=== PATIENT | male | born 1980 | race Two or more races ===

== ENCOUNTER 2016-06-03 20:55 | Emergency (ER) | payer OTHER ==
[~2016-06-03] VITALS: Ht 165.1 cm; Wt 99.8 kg
[~2016-06-03 20:55] MED LIST: AZITHROMYCIN250 MG ORAL; BENADRYL25 M3 PO; NKM; PREDNISONE20 MG ORAL; PROAIR HFA8.5 GM INH; PROMETHAZINE-D118 ML ORAL; TRAMADOL HCL50 MG ORAL
[2016-06-03 22:00] VITALS: BP 137/84
[2016-06-03] MEDS ORDERED: Morphine Sulfate 4mg/ml Inj IVP ONE (22:15)
[2016-06-03 23:03] LABS: MEAN CORPUSCULAR HEMOGLOBIN 31.6 PG (27.0-31.0); MEAN CORPUSCULAR HGB CONC 34.1 G/DL (32.0-36.0); MEAN CORPUSCULAR VOLUME 93 FL (80-99); PLATELET COUNT 176 K/UL (150-450); RED BLOOD COUNT 5.37 M/UL (4.70-6.10); RED CELL DISTRIBUTION WIDTH 11.8 % (11.6-14.8); WHITE BLOOD COUNT 7.9 K/UL (4.8-10.8)
[2016-06-03 23:04] LABS: BASOPHILS % (AUTO) 1.3 % (0.0-2.0); MEAN PLATELET VOLUME 10.1 FL (6.5-10.1); MONOCYTES % (AUTO) 8.3 % (1.0-10.0); NEUTROPHILS % (AUTO) 57.5 % (45.0-75.0)
[2016-06-03 23:10] LABS: ALANINE AMINOTRANSFERASE 54 U/L (3-41); ALBUMIN/GLOBULIN RATIO 1.6 (1.0-2.7); ANION GAP 17 (5-15); ASPARTATE AMINO TRANSFERASE 28 U/L (5-40); CARBON DIOXIDE 22 mEQ/L (20-30); CHLORIDE 103 mEQ/L (98-107); CHOLESTEROL 182 mg/dL (< 200); CHOLESTEROL/HDL RATIO 6.7 (3.3-4.4); GLOMERULAR FILTRATION RATE > 60 mL/min (>60); HEMOLYSIS 24; LDL CHOLESTEROL (CALC.) 62 mg/dL (60-99); LIPASE 34 U/L (< 60); POTASSIUM 4.2 mEQ/L (3.4-4.9); SODIUM 142 mEQ/L (135-145)
[2016-06-04 00:39] VITALS: BP 135/80
[2016-06-04] MEDS ORDERED: TRAMADOL HCL50 MG ORAL (00:43)
[2016-06-04 00:49] VITALS: BP 135/80
--- NOTE | 2016-06-04 02:11 | Emergency Room Report ---
History of Present Illness General Chief Complaint: Pain Source: Patient Present Illness HPI 35-year-old male presents to ED complaining of abdominal pain. Patient states that he was lifting a heavy gate today with he "felt a pop". Notes pain in his left upper abdomen. 10 out of 10. Sharp. Nonradiating. No aggravating or relieving factors. Denies nausea or vomiting. Denies fevers or chills. No aggravating relieving factors. Denies any other associated symptoms Allergies: Coded Allergies: No Known Allergies (Unverified , 04/26/14) Patient History Past Medical History: none Past Surgical History: appy Pertinent Family History: none Social History: Denies: alcohol use, drug use, smoking Immunizations: UTD Reviewed Nursing Documentation: PMH: Agreed, PSxH: Agreed Review of Systems All Other Systems: negative except mentioned in HPI Physical Exam Vital Signs Date Time Temp Pulse Resp B/P Pulse Ox O2 Delivery O2 Flow Rate FiO2 06/03/16 21:45 98.2 110 18 141/89 98 Room Air Sp02 EP Interpretation: reviewed, normal General Appearance: no apparent distress, alert, GCS 15, non-toxic Head: normocephalic, atraumatic Eyes: bilateral eye PERRL, bilateral eye normal inspection ENT: hearing grossly normal, normal pharynx, no angioedema, normal voice Neck: full range of motion, supple/symm/no masses Respiratory: chest non-tender, lungs clear, normal breath sounds, speaking full sentences Cardiovascular #1: regular rate, rhythm, no edema Cardiovascular #2: 2+ carotid (R), 2+ carotid (L), 2+ radial (R), 2+ radial (L) , 2+ dorsalis pedis (R), 2+ dorsalis pedis (L) Gastrointestinal: normal bowel sounds, soft, non-distended, no guarding, no rebound, tenderness - LUQ Rectal: deferred Genitourinary: normal inspection, no CVA tenderness Musculoskeletal: back normal, gait/station normal, normal range of motion, non- tender Neurologic: alert, oriented x3, responsive, motor strength/tone normal, sensory intact, speech normal Psychiatric: judgement/insight normal, memory normal, mood/affect normal, no suicidal/homicidal ideation Reflexes: 3+ bicep (R), 3+ bicep (L), 3+ tricep (R), 3+ tricep (L), 3+ knee (R) , 3+ knee (L) Skin: normal color, no rash, warm/dry, well hydrated Lymphatic: no adenopathy Medical Decision Making Diagnostic Impression: Primary Impression: Abdominal pain Qualified Codes: R10.12 - Left upper quadrant pain Additional Impression: Muscle strain ER Course Hospital Course 35-year-old male presents ED with left upper quadrant pain after lifting heavy object Differential diagnosis includes-appendicitis, cholecystitis, small bowel obstruction, gastritis, hernia Clinical course Patient placed on stretcher. After initial history and physical I ordered labs , IV fluids, pain medications and CT scan Labs - no leukocytosis, electrolytes ok, LFTs normal, UA unremarkable CT scan shows no acute pathology Upon reassessment, patient states pain has improved. Pain is likely muscular strain. Reassurance given I feel this is a highly complex case requiring extensive working including EKG/ Rhythm strip, Xray/CT/US, Blood/urine lab work, repeat exams while in ED, and administration of strong opiates/narcotics for pain control, admission to hospital or close patient follow up. Diagnosis - abdominal pain, muscle strain Stable and discharged to home with prescription for tramadol. Followup with PMD. Return to ED if symptoms recur or worsen Labs Test 06/03/16 22:30 White Blood Count 7.9 K/UL (4.8-10.8) Red Blood Count 5.37 M/UL (4.70-6.10) Hemoglobin 17.0 G/DL (14.2-18.0) Hematocrit 49.8 % (42.0-52.0) Mean Corpuscular Volume 93 FL (80-99) Mean Corpuscular Hemoglobin 31.6 PG (27.0-31.0) Mean Corpuscular Hemoglobin Concent 34.1 G/DL (32.0-36.0) Red Cell Distribution Width 11.8 % (11.6-14.8) Platelet Count 176 K/UL (150-450) Mean Platelet Volume 10.1 FL (6.5-10.1) Neutrophils (%) (Auto) 57.5 % (45.0-75.0) Lymphocytes (%) (Auto) 29.0 % (20.0-45.0) Monocytes (%) (Auto) 8.3 % (1.0-10.0) Eosinophils (%) (Auto) 4.0 % (0.0-3.0) Basophils (%) (Auto) 1.3 % (0.0-2.0) Sodium Level 142 mEQ/L (135-145) Potassium Level 4.2 mEQ/L (3.4-4.9) Chloride Level 103 mEQ/L (98-107) Carbon Dioxide Level 22 mEQ/L (20-30) Anion Gap 17 (5-15) Blood Urea Nitrogen 17 mg/dL (7-23) Creatinine 1.0 mg/dL (0.7-1.2) Estimat Glomerular Filtration Rate > 60 mL/min (>60) Glucose Level 130 mg/dL (74-106) Calcium Level 9.0 mg/dL (8.6-10.2) Total Bilirubin < 0.2 mg/dL (0.0-1.2) Aspartate Amino Transf (AST/SGOT) 28 U/L (5-40) Alanine Aminotransferase (ALT/SGPT) 54 U/L (3-41) Alkaline Phosphatase 95 U/L (40-129) Total Protein 7.0 g/dL (6.6-8.7) Albumin 4.4 g/dL (3.5-5.2) Globulin 2.6 g/dL Albumin/Globulin Ratio 1.6 (1.0-2.7) Triglycerides Level 464 mg/dL (< 150) Cholesterol Level 182 mg/dL (< 200) LDL Cholesterol 62 mg/dL (60-99) HDL Cholesterol 27 mg/dL (> 60) Cholesterol/HDL Ratio 6.7 (3.3-4.4) Lipase 34 U/L (< 60) CT/MRI/US Diagnostic Results CT/MRI/US Diagnostic Results : Imaging Test Ordered: CT A/P Impression no acute process Last Vital Signs Date Time Temp Pulse Resp B/P Pulse Ox O2 Delivery O2 Flow Rate FiO2 06/04/16 00:49 83 16 135/80 99 Room Air 06/04/16 00:39 98.0 Status: improved Disposition: HOME, SELF-CARE Condition: Stable Scripts Tramadol Hcl* (ULTRAM*) 50 Mg Tablet 50 MG ORAL Q6H Y for For Pain, #20 TAB 0 Refills Prov: ANALI COELLO M.D. 06/04/16 Referrals: [facility]ERR[facility] (PCP) Patient Instructions: Abdominal Pain, Adult, [id number] ANALI COELLO M.D. Jun 04, 2016 02:11
--- NOTE | 2016-06-04 08:54 | Diagnostic Imaging Report ---
Indication: Abdominal pain Technique: Continuous helical transaxial imaging of the abdomen and pelvis was obtained from the lung bases to the pubic symphysis during intravenous contrast administration. Coronal 2-D reformats were also obtained. Study obtained in a Siemens sensation [address] Total Dose length Product (DLP): [address] Dose Index Volume (CTDIvol): 19 mGy Comparison: 02/22/15 Findings: Lung bases are clear. The liver is low in attenuation consistent with fatty infiltration. No abnormal disease of the gallbladder, pancreas, adrenal glands, kidneys or spleen identified. Appendectomy noted. Bilateral hernias containing fat are noted. No change compared to the previous study. Is Impression: No acute findings appreciated. Fatty liver Bilateral inguinal hernias containing fat. Status post appendectomy. [facility] has communicated the preliminary results to the Emergency Department. Their findings are largely concordant with this report. The CT scanner at [facility] is accredited by the [employer] and the scans are performed using protocols designed to limit radiation exposure to as low as reasonably achievable to attain images of sufficient resolution adequate for diagnostic evaluation.
== END 2016-06-04 00:52 | disposition home or self-care (01) ==
LOC: EMR 22:25
DX: R10.12 Left upper quadrant pain (principal); S39.011A Strain of muscle, fascia and tendon of abdomen, initial encounter; X50.0XXA Overexertion from strenuous movement or load, initial encounter; Y92.9 Unspecified place or not applicable; K76.0 Fatty (change of) liver, not elsewhere classified; K40.20 Bilateral inguinal hernia, without obstruction or gangrene, not specified as recurrent; Z90.49 Acquired absence of other specified parts of digestive tract
CPT/HCPCS: 36415; 74177; 80053; 80061; 83690; 85025; 96360; 96374; 99284; J2270; J7040; Q9967

== ENCOUNTER 2017-07-02 12:06 | Emergency (ER) | payer OTHER ==
[~2017-07-02] VITALS: Ht 165.1 cm; Wt 98.4 kg
--- NOTE | 2017-07-02 12:53 | Emergency Room Report ---
History of Present Illness General Chief Complaint: Skin Rash/Abscess Present Illness HPI 36-year-old male presents to the emergency department complaining of dark and itchy rash on the bilateral hands times several months. Patient states that it comes and goes and is always in the same spot. Patient describes it is always circular in shape. Denies lesions/rashes elsewhere on the body. Denies new medications or body washes or creams. Denies swelling of the lips, tongue , throat or airway. Denies wheezing, or shortness of breath. Denies recent travel , recent illness or ill contacts. denies blisters, oral lesions, or sloughing of the skin. Patient also complains of intermittent burning sensation in the epigastric area that is worse approximately 30 minutes after eating with associated nausea and no vomiting times several months as well. Patient denies constipation, diarrhea, melena or hematochezia. Patient denies history of acid reflux. Patient reports his abdominal pain will be approximately 3 out of 10 in severity that is burning and constant. Patient denies pain at this time. Denies CP, Palpitations, LOC, AMS, dizziness, Changes in Vision, Sensation, paresthesias, or a sudden severe headache. Allergies: Coded Allergies: No Known Allergies (Unverified , 04/26/14) Patient History Past Medical History: see triage record Past Surgical History: none Pertinent Family History: none Reviewed Nursing Documentation: PMH: Agreed, PSxH: Agreed Review of Systems All Other Systems: negative except mentioned in HPI Physical Exam Vital Signs Date Time Temp Pulse Resp B/P (MAP) Pulse Ox O2 Delivery O2 Flow Rate FiO2 07/02/17 12:36 98.3 97 20 140/95 99 Room Air 98.2 Sp02 EP Interpretation: reviewed, normal General Appearance: no apparent distress, alert, GCS 15, non-toxic Head: normocephalic, atraumatic ENT: hearing grossly normal, no angioedema, normal voice, uvula midline, moist mucus membranes, other - no swelling of lips or tongue. Neck: full range of motion Respiratory: chest non-tender, lungs clear, normal breath sounds, speaking full sentences Cardiovascular #1: regular rate, rhythm, no edema Gastrointestinal: normal bowel sounds, non tender, soft, non-distended Musculoskeletal: back normal, gait/station normal, normal range of motion, non- tender Neurologic: alert, oriented x3, responsive, motor strength/tone normal, sensory intact, normal gait, speech normal, grossly normal Psychiatric: judgement/insight normal Skin: normal color, warm/dry, well hydrated, rash - Eczematoid-type skin lesions that are circular on the bilateral dorsal thenar aspects. No blisters or vesicles evidence of infection at this time Medical Decision Making PA Attestation Dr. Henry is my supervising Physician whom patient management has been discussed with. Diagnostic Impression: Primary Impression: Eczematous dermatitis Qualified Codes: L30.9 - Dermatitis, unspecified Additional Impression: Gastritis Qualified Codes: K29.70 - Gastritis, unspecified, without bleeding ER Course 36-year-old male presents to the emergency department complaining of : 1) dark and itchy rash on the bilateral hands times several months. Patient states that it comes and goes and is always in the same spot. Patient describes it is always circular in shape. Denies lesions/rashes elsewhere on the body. Denies new medications or body washes or creams. Denies swelling of the lips, tongue , throat or airway. Denies wheezing, or shortness of breath. Denies recent travel, recent illness or ill contacts. denies blisters, oral lesions, or sloughing of the skin. 2) Patient also complains of intermittent burning sensation in the epigastric area that is worse approximately 30 minutes after eating with associated nausea and no vomiting times several months as well. Patient denies constipation, diarrhea, melena or hematochezia. Patient denies history of acid reflux. Patient reports his abdominal pain will be approximately 3 out of 10 in severity that is burning and constant. Patient denies pain at this time. Denies CP, Palpitations, LOC, AMS, dizziness, Changes in Vision, Sensation, paresthesias, or a sudden severe headache. Ddx considered but are not limited to cellulitis, scabies, shingles, varicella, dermatitis, urticaria, eczema, tinea, viral exanthem, SJS, gastritis, PUD, appendicitis, GERD just to name a few. Vital signs: are WNL, pt. is afebrile H&PE are most consistent with Gastritis and Eczematous rash. --Eczematoid-type skin lesions that are circular on the bilateral dorsal thenar aspects. No blisters or vesicles evidence of infection at this time. Patient has normal abdominal exam, no evidence to suspect acute abdomen at this time. ORDERS: none required at this time, the diagnosis is clinical ED INTERVENTIONS: None required at this time. DISCHARGE: At this time pt. is stable for d/c to home. Will provide printed patient care instructions, and any necessary prescriptions. Care plan and follow up instructions have been discussed with the patient prior to discharge. Last Vital Signs Date Time Temp Pulse Resp B/P (MAP) Pulse Ox O2 Delivery O2 Flow Rate FiO2 07/02/17 12:36 98.3 97 20 140/95 99 Room Air 98.2 Disposition: HOME, SELF-CARE Condition: Stable Scripts Diphenhydramine Hcl* (BENADRYL*) 25 Mg Capsule 25 MG ORAL Q6H Y for Itching, #15 CAP Prov: Yaima Jackson 07/02/17 Triamcinolone Acet (Triamcinolone Acetonide) 15 Gm Cream..g. 1 APPLIC TP BID, #15 GM 2 Refills Prov: Yaima Jackson 07/02/17 Ranitidine Hcl* (ZANTAC*) 150 Mg Tablet 150 MG ORAL TWICE A DAY for 14 Days, #28 TAB Prov: Yaima Jackson 07/02/17 Patient Instructions: Eczema, Food Choices for Gastroesophageal Reflux Disease , Adult, Gastritis, Adult, Rash, [id number] Additional Instructions: Take medications as directed. Follow up with a Primary Care Provider in 3-5 days, even if your symptoms have resolved. --Please review list of primary care clinics, if you do not already have a primary care provider Return sooner to ED if new symptoms occur, or current symptoms become worse. - Please note that this Emergency Department Report was dictated using [employer] technology software, occasionally this can lead to erroneous entry secondary to interpretation by the dictation equipment. Yaima Jackson Jul 02, 2017 12:53
[2017-07-02] MEDS ORDERED: KENALOG 0.5% CR15 GM TP (12:55)
[2017-07-02] MEDS ORDERED: BENADRYL25 MG ORAL (12:55)
[2017-07-02] MEDS ORDERED: ZANTAC150 MG ORAL (12:55)
[2017-07-02 14:01] VITALS: BP 135/94
[2017-07-02 14:02] VITALS: BP 140/95
== END 2017-07-02 13:00 | disposition home or self-care (01) ==
LOC: EMR 12:49
DX: L30.9 Dermatitis, unspecified (principal); K29.70 Gastritis, unspecified, without bleeding
CPT/HCPCS: 99284